=== PATIENT | male | born 1945 | race Caucasian/White ===

== ENCOUNTER 2023-11-03 13:38 | Observation (INO) ==
--- NOTE | 2023-11-03 14:04 | Emergency Department Note ---
Impression & Plan Syncope, Hyperglycemia ED Provider Note NAME: HUMERA JACOB AGE: 78 SEX: M : 1945 ARRIVES VIA: Ambulance INFORMANT: Patient ED PROVIDER(S): Geovanny Guerrero DO CHIEF COMPLAINT: syncope HPI: Patient is an 78-year-old male who presents the ER for a syncopal episode. He was helping change a spark plug and got lightheaded and passed out. He was brought in by EMS. He denies any chest pain preceding or following the incident. When he woke up and he knew where he was. Per his friend he became very rigid. There is no seizure activity. He did not bite his tongue or lose control of his bowel or bladder. Denies any headache or change in vision. No dysuria, urgency, or frequency. He does admit to getting sick in the back of ambulance. Per EMS he did have about three bouts of 6 to 8 beats of what appeared to be VT to them. There is no clear motion on the patient at that time to of cause the artifact but they are not certain. He denies any complaints from the fall. ADDITIONAL HISTORY OBTAINED: Per HPI Chronic Medical/Social Conditions Affecting Care: Per HPI PAST MEDICAL HISTORY:See Below PAST SURGICAL HISTORY:See Below FAMILY HISTORY:See Below SOCIAL HISTORY:See Below HOME MEDICATIONS:See Below ALLERGIES:See Below VITALS:See Below PHYSICAL EXAMINATION: GENERAL: Sitting up in bed, alert, well appearing, well nourished, no distress, non-toxic EYE EXAM: normal conjunctiva. OROPHARYNX: mucous membranes are moist NECK: supple, no nuchal rigidity, no adenopathy, non-tender LUNGS: Clear to auscultation. Normal chest wall mechanics HEART: no murmurs, S1 normal and S2 normal ABDOMEN: abdomen soft, non-tender, normo-active bowel sounds, no masses, no rebound or guarding. UPPER EXTREMITIES: upper extremities are grossly normal. LOWER EXTREMITIES: No pitting edema. Calves are equal bilaterally NEURO EXAM: Normal sensorium, cranial nerves II-XII grossly intact, normal speech, no gross weakness of arms, no gross weakness of legs. MEDICAL DECISION MAKING: Patient is an 78-year-old male who presents ER for the above-stated complaint. IV was established blood was obtained. Labs show mild leukocytosis of 10.9 thousand. No significant anemia or thrombocytopenia. BMP with a glucose of 175. LFTs bilirubin was unremarkable. Troponin negative. Lipase unremarkable. EKG nondiagnostic. Per EMS there was concern for 3 episodes of about 6 beats of VT. This was reviewed by myself. Based on the patient's age and presentation I did discuss case with the hospitalist for further observation and management. Patient was in agreement. Consults/Care Managements Discussions: Per MDM Triage Nursing notes reviewed. Limited review of prior medical records performed Vital Signs: reviewed and remarkable for no significant abnormalities Differential diagnosis: Differential diagnosis includes etiologies such as vasovagal event, infection, hypoglycemia, electrolyte abnormalities, cardiac sources, intracerebral event, toxicologic, neurologic, as well as others were entertained. ER treatment provided: See below Diagnostics interpreted by me include EKG and cardiac monitoring as listed below: -Cardiac Monitoring: An order was placed for continuous cardiac monitoring. The monitor shows a rate of 80 with sinus rhythm. -ECG: Sinus rhythm rate of 77 Normal axis No PVCs QTc 475 -Laboratory studies:Interpreted by me as stated above in MDM and shown below. Imaging studies: Xrays: As interpreted by me: Portable AP upright 1 view of the chest shows no focal infiltrate CTs show: CT head and cervical spine was negative Procedures:none Critical Care: None Past Med/Surg History Medical History (Updated 11/03/23 @ 16:39 by Geovanny Guerrero, DO) Osteoarth NOS-unspec Dyslipidemia Diabetes 1.5, managed as type 2 Surgical History (Updated 11/03/23 @ 15:55 by Etienne Vyas, PhD, DO) H/O cervical spine surgery H/O lumbosacral spine surgery History of total right hip arthroplasty Social History Smoking Status: Current every day smoker Tobacco Type: Cigars Preferred Language: German Feels Safe at Home: Yes Allergies Allergies Allergy/AdvReac Type Severity Reaction Status Date / Time No Known Allergies Allergy Unknown Unverified 01/18/05 17:55 Home Meds Home Medications Medication Instructions Recorded Confirmed atorvastatin 20 mg tablet 20 mg PO DAILY 11/03/23 11/03/23 escitalopram oxalate 20 mg tablet 20 mg PO DAILY 11/03/23 11/03/23 finasteride 5 mg tablet 5 mg PO DAILY 11/03/23 11/03/23 tamsulosin 0.4 mg capsule 0.4 mg PO DAILY 11/03/23 11/03/23 Results & Data (ED) Vital Signs Vital Signs - 24 hr 11/03/23 14:06 11/03/23 14:07 11/03/23 14:07 Temperature 36.9 C Temperature Source Oral Pulse Rate 75 82 83 Pulse Rate [Left Apical] Pulse Rate [Right Finger] Pulse Rhythm Regular Regular Pulse Rhythm [Right Finger] Pulse Strength Normal Pulse Strength [Right Finger] Respiratory Rate 18 18 Respiratory Effort / Characteristics Non-Labored Spontaneous Respiratory Depth Normal Respiratory Pattern Regular Blood Pressure 134/70 Blood Pressure [Right Arm] Blood Pressure Mean 91 Blood Pressure Mean [Right Arm] Blood Pressure Position Semi-fowlers Blood Pressure Position [Right Arm] Pulse Oximetry 96 96 Oxygen Delivery Method Room Air Room Air Sepsis Recent Fever Within 48 Hours No Sepsis New/Unexplained Change in Mental Status N/A Sepsis Action Taken by Nursing No Action Required 11/03/23 14:18 11/03/23 14:18 11/03/23 14:43 Temperature 36.9 C Temperature Source Oral Pulse Rate 81 Pulse Rate [Left Apical] Pulse Rate [Right Finger] 83 Pulse Rhythm Pulse Rhythm [Right Finger] Regular Pulse Strength Pulse Strength [Right Finger] Normal Respiratory Rate 18 12 Respiratory Effort / Characteristics Non-Labored Spontaneous Respiratory Depth Normal Respiratory Pattern Regular Blood Pressure 134/70 Blood Pressure [Right Arm] 134/70 Blood Pressure Mean 91 Blood Pressure Mean [Right Arm] 91 Blood Pressure Position Blood Pressure Position [Right Arm] Semi-fowlers Pulse Oximetry 96 96 97 Oxygen Delivery Method Room Air Room Air Nasal Cannula Sepsis Recent Fever Within 48 Hours Sepsis New/Unexplained Change in Mental Status Sepsis Action Taken by Nursing 11/03/23 15:48 Temperature Temperature Source Pulse Rate Pulse Rate [Left Apical] 83 Pulse Rate [Right Finger] Pulse Rhythm Pulse Rhythm [Right Finger] Pulse Strength Pulse Strength [Right Finger] Respiratory Rate 17 Respiratory Effort / Characteristics Non-Labored Respiratory Depth Normal Respiratory Pattern Blood Pressure Blood Pressure [Right Arm] 129/78 Blood Pressure Mean Blood Pressure Mean [Right Arm] 95 Blood Pressure Position Blood Pressure Position [Right Arm] Pulse Oximetry 93 Oxygen Delivery Method Room Air Sepsis Recent Fever Within 48 Hours Sepsis New/Unexplained Change in Mental Status Sepsis Action Taken by Nursing Laboratory Data 11/03/23 14:05 11/03/23 14:05 Lab Results 11/03/23 Range/Units 14:05 WBC 10.92 H (4.8-10.8) K/ul RBC 4.66 L (4.70-6.10) M/uL Hgb 14.3 (14.0-18.0) g/dl Hct 42.1 (42.0-52.0) % MCV 90.3 (80.0-100.0) fL MCH 30.7 (25.0-34.0) pg MCHC 34.0 (32.0-36.0) g/dL RDW Std Deviation 46.5 H (36.4-46.3) fL RDW Coeff of Jamil 13.9 (11.5-14.5) % Plt Count 224 (130-400) K/uL MPV 10.3 (9.4-12.4) fL Immature Gran % (Auto) 0.5 % Neut % (Auto) 81.0 % Lymph % (Auto) 10.2 % [place] % (Auto) 7.1 % Eos % (Auto) 0.7 % Baso % (Auto) 0.5 % Neut # (Auto) 8.84 H (1.40-6.50) K/uL Lymph # (Auto) 1.11 L (1.20-3.40) K/uL [place] # (Auto) 0.78 H (0.11-0.59) K/uL Eos # (Auto) 0.08 (0.00-0.50) K/uL Baso # (Auto) 0.06 (0.00-0.20) K/uL Immature Gran # (Auto) 0.05 (0.01-0.20) K/uL Sodium 139 (136-145) mmol/L Potassium 4.1 (3.5-5.1) mmol/L Chloride 105 (98-107) mmol/L Carbon Dioxide 28 (21-32) mmol/L Anion Gap 6 (3-11) BUN 19 (6-23) mg/dl Creatinine 0.86 (0.6-1.4) mg/dl Est Cr Clr Drug Dosing 75.4 ml/min Est GFR ( Amer) 94.9 ml/min Est GFR (Non-Af Amer) 81.9 ml/min BUN/Creatinine Ratio 22.1 H (10-20) Glucose 175 H (70-99(Fasting)) mg/dl Calcium 9.3 (8.6-10.3) mg/dl Total Bilirubin 0.5 (0.2-1.0) mg/dl AST 27 (13-39) U/L ALT 24 (7-52) U/L Alkaline Phosphatase 85 (34-104) U/L Troponin I High Sens 3.9 (0-20) pg/ml Total Protein 7.2 (6.0-8.3) gm/dl Albumin 4.5 (3.4-5.0) gm/dl Globulin 2.7 (2.5-4.0) gm/dl Albumin/Globulin Ratio 1.7 (0.9-2) Lipase 12 (11-82) U/L Administered Medications Discontinued Medications Aspirin (Aspirin 81 Mg Chew) 324 mg PO NOW STA Stop: 11/03/23 16:05 Last Admin: 11/03/23 16:19 Dose: 324 mg Documented By: HS Imaging Data Radiologist's Impression: Chest X-Ray 11/03/23 13:57 XR chest 1V portable CLINICAL HISTORY: Chest pain, nonspecific TECHNIQUE: Single frontal radiograph of the chest was obtained. Comparison: None available at the time of this dictation. FINDINGS: No lines and tubes are seen. The cardiomediastinal silhouette is normal. The lungs are clear. No evidence of pleural effusion or pneumothorax. IMPRESSION: No acute chest disease. ACT 112: Negative or not required by law. Electronically signed by: Naveen Johnson M.D. 11/03/2023 2:[address] 11/03/23 14:10 CT cervical spine wo con CLINICAL HISTORY: fall TECHNIQUE: Multidetector row helical CT of the cervical spine was performed without administration of intravenous contrast. Coronal and sagittal reformations were obtained. Automated dose lowering techniques and/or adjustment according to patient size were utilized for this exam. Comparison: None available at the time of this dictation. FINDINGS: No acute fractures or subluxations are identified. Degenerative changes are seen in the visualized spine. The alignment is normal. Soft tissues are unremarkable. IMPRESSION: Degenerative changes without evidence of acute bony injury. ACT 112: Negative or not required by law. Electronically signed by: Naveen Johnson M.D. 11/03/2023 3:[address] 11/03/23 14:10 CT SCAN OF THE BRAIN WITHOUT IV CONTRAST CLINICAL HISTORY: Syncope. COMPARISON STUDY: No priors. TECHNIQUE: Unenhanced axial CT scan of the brain is performed from the vertex to the skull base. A dose lowering technique was utilized adhering to the principles of ALARA. CT DOSE: 1156.19 mGy.cm FINDINGS: Brain parenchyma: There is age-related involutional change noting [id number] subcortical and periventricular microangiopathic disease. There is no hemorrhage, mass effect, or evidence of acute territorial ischemia by CT criteria. Macedo-white matter differentiation is preserved. No extra-axial fluid collection is seen. Ventricles, sulci, cisterns: Prominent secondary to involutional change. Intracranial vasculature: There is atherosclerotic calcification of the cavernous carotid and vertebral arteries. Calvarium: The skeletal structures are osteopenic. No depressed calvarial fracture is identified. Sinuses and mastoids: There is evidence of previous paranasal sinus surgery. There is trace mucosal thickening in the right maxillary antrum and the ethmoid cavity. The remaining visualized paranasal sinuses are clear. The mastoid air cells are well pneumatized. Orbits: The bony orbits are grossly intact. IMPRESSION: There is no hemorrhage, mass effect, or evidence of acute territorial ischemia by CT criteria. ACT 112: Negative or not required by law. Electronically signed by: Nico Mayo M.D. 11/03/2023 3:02 PM Discharge Plan Visit Data Chief Complaint: Syncope Stated Complaint: PASSED OUT, LIGHT HEADED ED Provider: Geovanny Guerrero Discharge Problem: Syncope, Hyperglycemia Forms Stand Alone Forms: My [facility] [employer] Prescriptions Prescriptions: No Action atorvastatin 20 mg tablet 20 mg PO DAILY tamsulosin 0.4 mg capsule 0.4 mg PO DAILY finasteride 5 mg tablet 5 mg PO DAILY escitalopram oxalate 20 mg tablet 20 mg PO DAILY Referrals Referrals: PCP,NO [Primary Care Provider] - Discharge Problem: Syncope Qualifiers: Syncope type: unspecified Qualified Code(s): R55 - Syncope and collapse
[2023-11-03 14:23] LABS: Basophils # (auto) 0.06 K/uL (0.00-0.20); Basophils % (auto) 0.5 %; Eosinophils # (auto) 0.08 K/uL (0.00-0.50); Eosinophils % (auto) 0.7 %; Hematocrit (blood only) 42.1 % (42.0-52.0); Hemoglobin 14.3 g/dl (14.0-18.0); Immature Granulocytes # (auto) 0.05 K/uL (0.01-0.20); Immature Granulocytes % (auto) 0.5 %; Lymphocytes # (auto) 1.11 K/uL (1.20-3.40); Lymphocytes % (auto) 10.2 %; Mean Corpuscular Hemoglobin 30.7 pg (25.0-34.0); Mean Corpuscular Volume 90.3 fL (80.0-100.0); Mean Platelet Volume 10.3 fL (9.4-12.4); Monocytes # (auto) 0.78 K/uL (0.11-0.59); Monocytes % (auto) 7.1 %; Neutrophils # (auto) 8.84 K/uL (1.40-6.50); Platelet Count 224 K/uL (130-400); RDW Coefficient of Variation 13.9 % (11.5-14.5); RDW Standard Deviation 46.5 fL (36.4-46.3); Red Blood Count 4.66 M/uL (4.70-6.10); White Blood Count 10.92 K/ul (4.8-10.8)
--- NOTE | 2023-11-03 14:35 | XRay Report ---
XR chest 1V portable CLINICAL HISTORY: Chest pain, nonspecific TECHNIQUE: Single frontal radiograph of the chest was obtained. Comparison: None available at the time of this dictation. FINDINGS: No lines and tubes are seen. The cardiomediastinal silhouette is normal. The lungs are clear. No evid ence of pleural effusion or pneumothorax. IMPRESSION: No acute chest disease. ACT 112: Negative or not required by law. Electronically signed by: Naveen Johnson M.D. 11/03/2023 2:34 PM
[2023-11-03 14:36] LABS: Albumin Globulin Ratio 1.7 (0.9-2); Albumin Level 4.5 gm/dl (3.4-5.0); BUN Creatinine Ratio 22.1 (10-20); Bilirubin,Total 0.5 mg/dl (0.2-1.0); Calcium 9.3 mg/dl (8.6-10.3); Creatinine Clr Calc Pharmacy 75.4 ml/min; Est GFR (African American) 94.9 ml/min; Est GFR (Non-African American) 81.9 ml/min; Globulin 2.7 gm/dl (2.5-4.0); Potassium 4.1 mmol/L (3.5-5.1); Total Protein 7.2 gm/dl (6.0-8.3)
[2023-11-03 14:42] LABS: Troponin I High Sensitivity 3.9 pg/ml (0-20)
--- NOTE | 2023-11-03 15:03 | Electrocardiogram Report ---
Test Reason : Blood Pressure : / mmHG Vent. Rate : 077 BPM Atrial Rate : 077 BPM P-R Int : 162 ms QRS Dur : 102 ms QT Int : 420 ms P-R-T Axes : 077 000 051 degrees QTc Int : 475 ms Normal sinus rhythm Incomplete right bundle branch block Confirmed by Cristobal Christiansen ([id number]) on 11/03/2023 3:02:40 PM Referred By: Confirmed By:Delonte Christiansen
--- NOTE | 2023-11-03 15:03 | CT Scan Report ---
CT SCAN OF THE BRAIN WITHOUT IV CONTRAST CLINICAL HISTORY: Syncope. COMPARISON STUDY: No priors. TECHNIQUE: Unenhanced axial CT scan of the brain is performed from the vertex to the skull base. A do se lowering technique was utilized adhering to the principles of ALARA. CT DOSE: 1156.19 mGy.cm FINDINGS: Brain parenchyma: There is age-related involutional change noting [id number] subcortical and pe riventricular microangiopathic disease. There is no hemorrhage, mass effect, or evidence of acute ter ritorial ischemia by CT criteria. Macedo-white matter differentiation is preserved. No extra-axial flui d collection is seen. Ventricles, sulci, cisterns: Prominent secondary to involutional change. Intracranial vasculature: There is atherosclerotic calcification of the cavernous carotid and vertebr al arteries. Calvarium: The skeletal structures are osteopenic. No depressed calvarial fracture is identified. Sinuses and mastoids: There is evidence of previous paranasal sinus surgery. There is trace mucosal t hickening in the right maxillary antrum and the ethmoid cavity. The remaining visualized paranasal si nuses are clear. The mastoid air cells are well pneumatized. Orbits: The bony orbits are grossly intact. IMPRESSION: There is no hemorrhage, mass effect, or evidence of acute territorial ischemia by CT hanna hallman. ACT 112: Negative or not required by law. Electronically signed by: Nico Mayo M.D. 11/03/2023 3:02 PM
--- NOTE | 2023-11-03 15:25 | CT Scan Report ---
CT cervical spine wo con CLINICAL HISTORY: fall TECHNIQUE: Multidetector row helical CT of the cervical spine was performed without administration of intravenous contrast. Coronal and sagittal reformations were obtained. Automated dose lowering techn iques and/or adjustment according to patient size were utilized for this exam. Comparison: None available at the time of this dictation. FINDINGS: No acute fractures or subluxations are identified. Degenerative changes are seen in the visualized sp ine. The alignment is normal. Soft tissues are unremarkable. IMPRESSION: Degenerative changes without evidence of acute bony injury. ACT 112: Negative or not required by law. Electronically signed by: Naveen Johnson M.D. 11/03/2023 3:24 PM
--- NOTE | 2023-11-03 16:02 | History & Physical Report ---
Date of Service November 03, 2023 Assessment & Plan (1) Syncope: Plan: Assessment: 1. Syncope-unknown etiology. CT of the head negative EKG reassuring. Troponin negative. The patient traveled here from [place] he is at high risk for PE with prostate cancer and recent travel. Stat D-dimer is ordered. The rhythm strip has not been located. It does appear that this is probably ventricular tachycardia. Approximately 8 beats in duration. According to the medic and transported him he had 3 separate episodes but this was the only episode that could be captured. Will monitor carefully. We will check a stat magnesium. 2. Rule out pulmonary embolism as above stat D-dimer. 3. Rule out myocardial infarction with serial troponins. Echocardiogram. 4. Tobacco abuse in the form of smoking cigars 3-4 daily. 5. Occasional alcohol use but none recently. 6. Diabetes mellitus [id number]. 7. Dyslipidemia. 2. History of prostate carcinoma status post a radiation seed implantation. 9. Osteoarthritis status post right total hip arthroplasty remotely. 10. 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 Plan: As described above. Stat troponin stat D-dimer stat magnesium telemetry monitoring echocardiogram. Please refer to orders for further planning. History of Present Illness Chief Complaint: Syncope Primary Care Provider: NO PCP Is an 78-year-old male who is from out of town he is from [facility]. He has a camp here locally. He was changing a spark plug with a friend he was bent over he stood up and was lightheaded shortly thereafter according to his friend he became stiff and fell to the ground there was no seizure activity. He was only unconscious for a few seconds when he woke up there was no postictal state he was alert and oriented. There was no loss of bowel or bladder continence. There was no tongue bite. The patient was transported the the ER by EMS. In route there was an apparent 6-8 beat run of ventricular tachycardia that was recorded on a rhythm strip that EMS thought could represent ventricular tachycardia. This rhythm strip has been reviewed by the ER physician however it is unavailable for me to view the staff is currently looking for this rhythm strip and has yet to locate it for my viewing. The ER physician cannot tell me for certainty whether this was ventricular tachycardia or no patient had a unremarkable CT of the head unremarkable CT of the cervical spine. t. Labs are unremarkable including CBC CMP and a negative troponin. Will keep the patient on telemetry observation status to serial troponins and an echocardiogram obtain orthostatic blood pressure measurements. Allergies Allergy/AdvReac Type Severity Reaction Status Date / Time No Known Allergies Allergy Unknown Unverified 01/18/05 17:55 Past Med/Surg History Medical History (Updated 11/03/23 @ 15:58 by Etienne Vyas, PhD, DO) Osteoarth NOS-unspec Dyslipidemia Diabetes 1.5, managed as type 2 Surgical History (Updated 11/03/23 @ 15:55 by Etienne Vyas, PhD, DO) H/O cervical spine surgery H/O lumbosacral spine surgery History of total right hip arthroplasty Social History Smoking Status: Current every day smoker Tobacco Type: Cigars Preferred Language: Hungarian Feels Safe at Home: Yes Review of Systems Review of Systems: A 10 point review of system was obtained and unless otherwise stated here or in history of present illness are negative and noncontributory to chief complaint. Physical Exam Physical Exam: In General: In general this is a 78-year-old male who is alert and oriented x 3 at time of my exam he is asymptomatic and feels at his baseline health status at this time. At the time of my evaluation the patient's is on his speaker phone. HEENT: Normocephalic atraumatic pupils are equal round and reactive to light bilaterally. No scleral icterus no conjunctival injection external auditory canals are patent septum is in the midline nose is without discharge oral mucosa is pink and moist without lesion. NECK: Supple no rigidity no lymphadenopathy no thyromegaly no carotid bruits no JVD no masses. HEART: Regular rate and rhythm I do not appreciate any ectopy or rub. No m urmur. LUNGS: Clear to auscultation bilaterally and anteriorly with no evidence of adventitious sounds/wheezes rales or rhonchi. ABDOMEN: Soft nontender, no rebound, no peritoneal signs, positive bowel sounds, no appreciable organomegaly. EXTREMITIES: Intact, no peripheral cyanosis, clubbing or edema. Strength is 5 out of 5 in extremities x4, no pathological reflexes. NEUROLOGICAL: Cranial nerves II through XII are grossly intact with no focal deficit elicited upon examination. No tremor. Results & Data Results & Data Vital Signs (Past 12 Hours) Vital Signs Temp Pulse Pulse Resp BP BP Pulse Ox 11/03/23 14:43 81 12 134/70 97 11/03/23 14:18 96 03/19/24 14:18 36.9 C 83 18 134/70 96 11/03/23 14:07 83 18 96 11/03/23 14:07 36.9 C 82 18 134/70 96 11/03/23 14:06 75 O2 Del Method 11/03/23 14:43 Nasal Cannula 11/03/23 14:18 Room Air 11/03/23 14:18 Room Air 11/03/23 14:07 Room Air 11/03/23 14:07 Room Air 11/03/23 14:06 Code Status & VTE Plan Code Status Full code-I personally discussed with patient. PG Care Time/CCT Total # of Minutes Spent Total Time Spent with Patient: Total time spent is greater than 50% in coordination of care (as documented) at patient's floor/unit and/or counseling patient: Coding Level of Care Code 19634 INT INP/OBS CARE 3/75MIN Diagnoses Syncope R55
[2023-11-03] MEDS ORDERED: DEXTROSE 50% 50 ML SYRINGE IV PRN (16:04)
[2023-11-03] MEDS ORDERED: GLUCOSE 10 TAB/TUBE PO PRN (16:04)
[2023-11-03] MEDS ORDERED: GLUCAGON FOR INJ 1 MG VIAL SQ PRN (16:04)
[2023-11-03] MEDS ORDERED: GLUCOSE 40% GEL 15 GM TUBE PO PRN (16:04)
[2023-11-03] MEDS ORDERED: CARBOHYDRATES FOR HYPOGLYCEMIA PO PRN (16:04)
[2023-11-03] MEDS: ASPIRIN 81 MG CHEW PO STA (16:19)
[2023-11-03 16:36] LABS: Magnesium 2.1 mg/dl (1.7-2.4)
[2023-11-03 16:42] LABS: Troponin I High Sensitivity 4.8 pg/ml (0-20)
[2023-11-03 17:10] LABS: D Dimer 1600 ug/L FEU (0-500)
[2023-11-03] MEDS: OPTIRAY 320 125ml IV ONE (17:24)
[2023-11-03] MEDS: INSULIN ASPART PER UNIT CHARGE SC SCH (18:33)
--- NOTE | 2023-11-03 19:04 | CT Scan Report ---
CT ANGIOGRAM OF THE CHEST CLINICAL HISTORY: Atypical chest pain. COMPARISON STUDY: Chest x-ray dated 11/03/2023. TECHNIQUE: Following the IV administration of 116 cc of Optiray 320, CT angiogram of the chest was pe rformed from the upper abdomen to the thoracic inlet utilizing the pulmonary embolus protocol. Images are reviewed in the axial, sagittal, and coronal planes. 3-D MIPS images are created and assessed. I V contrast was administered without complication. A dose lowering technique was utilized adhering to the principles of ALARA. CT DOSE: 582.25 mGy.cm FINDINGS: Thyroid: Imaged portions of the thyroid gland are normal in size and attenuation. Thoracic aorta: The thoracic aorta is normal in caliber and demonstrates standard 3-vessel arch anato my. No dissection is seen. Pulmonary vasculature: The pulmonary trunk is normal in caliber. There are no filling defects identif ied in main, lobar, or segmental pulmonary branches to suggest pulmonary embolus. Heart: The heart is normal in size and without pericardial effusion. There are scattered coronary art amaury calcifications. Lungs and pleural spaces: There is dependent atelectasis seen at both lung bases. No airspace consoli dation or pleural effusion is identified. The trachea and central airways are clear. Mediastinum: There is no mediastinal lymphadenopathy. Freya: Clear. Axillae: There is no axillary lymphadenopathy. Upper abdomen: Partially visualized upper abdominal viscera is within normal limits. Skeletal structures: The skeletal structures are osteopenic. Degenerative changes noted in the should ers and spine. No lytic or blastic bony lesions are seen. IMPRESSION: 1. There is no evidence of pulmonary embolus in the main, lobar, or segmental pulmonary arteries. 2. There is no airspace consolidation or pleural effusion. 3. Additional findings as above. ACT 112: Negative or not required by law. Electronically signed by: Nico Mayo M.D. 11/03/2023 7:03 PM
[2023-11-04] MEDS: FAMOTIDINE 20 MG TAB PO PRN (04:06)
[2023-11-04 06:49] LABS: Basophils # (auto) 0.06 K/uL (0.00-0.20); Basophils % (auto) 0.7 %; Eosinophils # (auto) 0.18 K/uL (0.00-0.50); Eosinophils % (auto) 2.2 %; Hematocrit (blood only) 42.7 % (42.0-52.0); Immature Granulocytes # (auto) 0.03 K/uL (0.01-0.20); Immature Granulocytes % (auto) 0.4 %; Lymphocytes # (auto) 0.92 K/uL (1.20-3.40); Lymphocytes % (auto) 11.3 %; Mean Corpuscular Hemoglobin 30.1 pg (25.0-34.0); Mean Corpuscular Hgb Conc 32.8 g/dL (32.0-36.0); Mean Corpuscular Volume 91.8 fL (80.0-100.0); Mean Platelet Volume 10.6 fL (9.4-12.4); Monocytes % (auto) 9.8 %; Neutrophils # (auto) 6.16 K/uL (1.40-6.50); Neutrophils % (auto) 75.6 %; Platelet Count 238 K/uL (130-400); RDW Coefficient of Variation 14.1 % (11.5-14.5); RDW Standard Deviation 47.8 fL (36.4-46.3); Red Blood Count 4.65 M/uL (4.70-6.10); White Blood Count 8.15 K/ul (4.8-10.8)
[2023-11-04 07:43] LABS: Thyroid Stimulating Hormone 1.5 uIu/ml (0.300-4.500)
[2023-11-04 07:44] LABS: Estimated Average Glucose 160 mg/dl; Hemoglobin A1C 7.2 % (4.5-5.6)
[2023-11-04 08:21] LABS: Albumin Level 4.1 gm/dl (3.4-5.0); Bilirubin,Total 0.5 mg/dl (0.2-1.0); Magnesium 2.1 mg/dl (1.7-2.4); Potassium 4.2 mmol/L (3.5-5.1)
[2023-11-04 08:28] LABS: Albumin Globulin Ratio 1.6 (0.9-2); BUN Creatinine Ratio 23.5 (10-20); Chol HDL Ratio 2.2 (0-5); Creatinine Clr Calc Pharmacy 72.7 ml/min; Est GFR (African American) 97.3 ml/min; Est GFR (Non-African American) 83.9 ml/min; Globulin 2.6 gm/dl (2.5-4.0); Total Protein 6.7 gm/dl (6.0-8.3)
--- NOTE | 2023-11-04 10:34 | Cardiology Consultation ---
Date of Consultation November 04, 2023 Assessment & Plan (1) Syncope: Plan 1. Syncope: Unknown etiology. It is possible this represented an arrhythmia. The onset was fairly sudden but he did have a prodrome. Also possibly vagally mediated as he had some symptoms of high vagal tone afterwards. Curiously, it was cold outside hand not eaten all day. With a normal echocardiogram he is low risk for significant ventricular arrhythmias. The recordings obtained by EMS and labeled ventricular tachycardia are simply artifact. A given his overall good health in the absence of objective findings I think would be reasonable to have him discharged with outpatient ambulatory monitoring. This could be arranged through our clinic or if he prefers closer to home around [place]. History of Present Illness Reason for Consultation: Syncope Attending Physician: Macarena Salamanca MD History of Present Illness The patient is an 78-year-old gentleman without a known history of cardiac disease who suffered an episode of syncope yesterday. This was a witnessed event. Patient states he was standing at the time perhaps slightly bent over when he suddenly became dizzy and lightheaded. He backed up a few steps and then according to bystanders passed out on the ground. Reportedly he was out for 1-2 minutes. The patient remembers waking up and being aware of his surroundings. Afterwards he felt somewhat nauseated but otherwise well. No major injuries. EMS was summoned and he was brought to the hospital for evaluation. Reportedly the patient vomited in route. He recalls being somewhat nauseated possibly due to the bumpy road out of his camp site. The patient does not recall any other episodes of syncope in the past. Very rare episodes of dizziness or lightheadedness when standing up rapidly. No history of palpitations or rapid heartbeats. He is very active individual who is accustomed to chopping wood and performing strenuous activity without limitation. He has an element of fatigue at times but did not report limiting dyspnea or shortness of breath. No symptoms of exertional chest pain. Currently feeling well without symptoms. He has been ambulatory around his hospital room without dizziness or lightheadedness. No sense of palpitation. Allergies Allergy/AdvReac Type Severity Reaction Status Date / Time No Known Allergies Allergy Unknown Unverified 01/18/05 17:55 Home Medications Medication Instructions Recorded Confirmed Type atorvastatin 20 mg tablet 20 mg PO DAILY 11/03/23 11/03/23 History escitalopram oxalate 20 mg tablet 20 mg PO DAILY 11/03/23 11/03/23 History finasteride 5 mg tablet 5 mg PO DAILY 11/03/23 11/03/23 History tamsulosin 0.4 mg capsule 0.4 mg PO DAILY 11/03/23 11/03/23 History Patient History Medical History (Updated 11/03/23 @ 16:39 by Geovanny Guerrero, DO) Osteoarth NOS-unspec Dyslipidemia Diabetes 1.5, managed as type 2 Surgical History (Updated 11/03/23 @ 15:55 by Etienne Vyas, PhD, DO) H/O cervical spine surgery H/O lumbosacral spine surgery History of total right hip arthroplasty Social History Smoking Status: Current every day smoker Tobacco Type: Cigars Cigarettes Per Day: 1; Hx Alcohol Use: Yes Alcohol type: beer Hx Substance Use: No Preferred Language: Kiswahili Communication Ability: Effective Finishing Manager Required: No Beliefs That Will Affect Care: None Current Living Situation: Spouse Current Living Situation Comment: Lives at home with Other Information That Helps Us Care for You: No Feels Safe at Home: Yes Safety Concerns: Feels Safe At This Time Assistive Devices: Denture - Upper and Glasses Review of Systems Review of Systems: Per HPI. No recent illnesses. No recent fevers or chills. He generally does not eat breakfast and sometimes does not eat until very late in the day. Physical Exam Physical Exam: The patient is alert and oriented. Mood and affect appeared normal. He answered all questions appropriately. HEENT: Pupils are equal and reactive to light and accommodation. Extraocular movements are intact. The sclerae are anicteric. Neuro: Cranial nerves intact Neck: Patient's neck is supple. He has palpable carotid pulses bilaterally without bruits on auscultation. There is no evidence of jugular venous distention. The thyroid is not enlarged. Lungs: Clear to auscultation bilaterally. He has good air movement without use of accessory muscles. No rales wheezes or rhonchi. Cardiac: Heart demonstrates a regular rate and rhythm. Normal S1 and S2. No murmurs on examination. Pulses: The patient has palpable radial pulses bilaterally that are equal in intensity Extremities: There was no evidence of hypoperfusion. There is no cyanosis or clubbing. There is no edema. Skin: I did not appreciate any rashes on examination today. Results & Data Vital Signs (Past 12 Hours) Vital Signs Temp Pulse Pulse Pulse Resp BP Pulse Ox 11/04/23 07:45 11/04/23 07:00 36.9 C 97 H 18 98/59 L 97 11/04/23 06:00 79 11/04/23 03:34 36.7 C 94 H 17 129/69 94 11/03/23 23:34 36.8 C 74 17 112/66 96 O2 Del Method 11/04/23 07:45 Room Air 11/04/23 07:00 Room Air 11/04/23 06:00 11/04/23 03:34 Room Air 11/03/23 23:34 Room Air Laboratory Results Abnormal Lab Results 11/03/23 11/03/23 11/03/23 14:05 16:05 18:01 WBC 10.92 H RBC 4.66 L Hgb 14.3 Hct 42.1 MCV 90.3 MCH 30.7 MCHC 34.0 RDW Std Deviation 46.5 H RDW Coeff of Jamil 13.9 Plt Count 224 MPV 10.3 Immature Gran % (Auto) 0.5 Neut % (Auto) 81.0 Lymph % (Auto) 10.2 [place] % (Auto) 7.1 Eos % (Auto) 0.7 Baso % (Auto) 0.5 Neut # (Auto) 8.84 H Lymph # (Auto) 1.11 L [place] # (Auto) 0.78 H Eos # (Auto) 0.08 Baso # (Auto) 0.06 Immature Gran # (Auto) 0.05 D-Dimer 1600 H* Sodium 139 Potassium 4.1 Chloride 105 Carbon Dioxide 28 Anion Gap 6 BUN 19 Creatinine 0.86 Est Cr Clr Drug Dosing 75.4 Est GFR ( Amer) 94.9 Est GFR (Non-Af Amer) 81.9 BUN/Creatinine Ratio 22.1 H Glucose 175 H POC Glucose 123 H Estimat Average Glucose Hemoglobin A1c Calcium 9.3 Magnesium 2.1 Total Bilirubin 0.5 AST 27 ALT 24 Alkaline Phosphatase 85 Troponin I High Sens 3.9 4.8 Total Protein 7.2 Albumin 4.5 Globulin 2.7 Albumin/Globulin Ratio 1.7 Triglycerides Cholesterol LDL Cholesterol, Calc VLDL Cholesterol, Calc HDL Cholesterol Cholesterol/HDL Ratio Lipase 12 TSH 11/03/23 11/03/23 11/03/23 19:39 19:43 20:55 WBC RBC Hgb Hct MCV MCH MCHC RDW Std Deviation RDW Coeff of Jamil Plt Count MPV Immature Gran % (Auto) Neut % (Auto) Lymph % (Auto) [place] % (Auto) Eos % (Auto) Baso % (Auto) Neut # (Auto) Lymph # (Auto) [place] # (Auto) Eos # (Auto) Baso # (Auto) Immature Gran # (Auto) D-Dimer Sodium Potassium Chloride Carbon Dioxide Anion Gap BUN Creatinine Est Cr Clr Drug Dosing Est GFR ( Amer) Est GFR (Non-Af Amer) BUN/Creatinine Ratio Glucose POC Glucose 164 H 105 H Estimat Average Glucose Hemoglobin A1c Calcium Magnesium Total Bilirubin AST ALT Alkaline Phosphatase Troponin I High Sens 5.8 Total Protein Albumin Globulin Albumin/Globulin Ratio Triglycerides Cholesterol LDL Cholesterol, Calc VLDL Cholesterol, Calc HDL Cholesterol Cholesterol/HDL Ratio Lipase TSH 11/04/23 11/04/23 05:59 07:14 WBC 8.15 RBC 4.65 L Hgb 14.0 Hct 42.7 MCV 91.8 MCH 30.1 MCHC 32.8 RDW Std Deviation 47.8 H RDW Coeff of Jamil 14.1 Plt Count 238 MPV 10.6 Immature Gran % (Auto) 0.4 Neut % (Auto) 75.6 Lymph % (Auto) 11.3 [place] % (Auto) 9.8 Eos % (Auto) 2.2 Baso % (Auto) 0.7 Neut # (Auto) 6.16 Lymph # (Auto) 0.92 L [place] # (Auto) 0.80 H Eos # (Auto) 0.18 Baso # (Auto) 0.06 Immature Gran # (Auto) 0.03 D-Dimer Sodium 138 Potassium 4.2 Chloride 105 Carbon Dioxide 25 Anion Gap 8 BUN 19 Creatinine 0.81 Est Cr Clr Drug Dosing 72.7 Est GFR ( Amer) 97.3 Est GFR (Non-Af Amer) 83.9 BUN/Creatinine Ratio 23.5 H Glucose 121 H POC Glucose 127 H Estimat Average Glucose 160 Hemoglobin A1c 7.2 H Calcium 9.0 Magnesium 2.1 Total Bilirubin 0.5 AST 25 ALT 19 Alkaline Phosphatase 73 Troponin I High Sens Total Protein 6.7 Albumin 4.1 Globulin 2.6 Albumin/Globulin Ratio 1.6 Triglycerides 72 Cholesterol 140 LDL Cholesterol, Calc 63 VLDL Cholesterol, Calc 14 HDL Cholesterol 63 Cholesterol/HDL Ratio 2.2 Lipase TSH 1.500 Diagnostic Findings Chest CTA did not reveal any evidence of pulmonary embolus or acute inter pulmonary process. Head CT and neck CT did not reveal any acute injury Echocardiogram performed 10/27/2023 revealed preserved LV systolic function without significant valvular abnormalities. ECG Additional Comments: EKG at the time admission revealed normal sinus rhythm with incomplete right bundle branch block. PG Care Time/CCT Total # of Minutes Spent Total Time Spent with Patient: Total time spent is greater than 50% in coordination of care (as documented) at patient's floor/unit and/or counseling patient: Coding Level of Care Code 02939 INT INP/OBS CARE 3/75MIN Diagnoses Syncope R55 Syncope type: unspecified (1) Syncope Syncope type: unspecified Qualified Code(s): R55 - Syncope and collapse
--- NOTE | 2023-11-04 12:45 | XCELERA ---
[id number]
--- NOTE | 2023-11-04 18:38 | Discharge Summary ---
Date of Service November 04, 2023 Admission HPI Per Admitting Provider Is an 78-year-old male who is from out of town he is from [facility]. He has a camp here locally. He was changing a spark plug with a friend he was bent over he stood up and was lightheaded shortly thereafter according to his friend he became stiff and fell to the ground there was no seizure activity. He was only unconscious for a few seconds when he woke up there was no postictal state he was alert and oriented. There was no loss of bowel or bladder continence. There was no tongue bite. The patient was transported the the ER by EMS. In route there was an apparent 6-8 beat run of ventricular tachycardia that was recorded on a rhythm strip that EMS thought could represent ventricular tachycardia. This rhythm strip has been reviewed by the ER physician however it is unavailable for me to view the staff is currently looking for this rhythm strip and has yet to locate it for my viewing. The ER physician cannot tell me for certainty whether this was ventricular tachycardia or no patient had a unremarkable CT of the head unremarkable CT of the cervical spine. t. Labs are unremarkable including CBC CMP and a negative troponin. Will keep the patient on telemetry observation status to serial troponins and an echocardiogram obtain orthostatic blood pressure measurements. Principal Diagnosis syncope Discharge Exam PHYSICAL EXAMINATION Last 24h vital signs reviewed, see documentation in flowsheet General: comfortable appearing, no distress HEENT: Normocephalic, atraumatic, pupils round and equal, sclerae anicteric, no conjunctival injection, moist mucus membranes Lungs: Normal respiratory effort. Clear to auscultation bilaterally. No RRW Heart: Regular rate and rhythm, no murmurs. No JVD Abdomen: Soft, nontender, nondistended. Bowel sounds present. Extremities: Warm, dry, well-perfused. No extremity edema. Neuro: Alert and oriented x 4, face symmetric, moves 4 extremities well Psych: Normal affect and behavior Discharge Data Allergies Allergy/AdvReac Type Severity Reaction Status Date / Time No Known Allergies Allergy Unknown Unverified 01/18/05 17:55 Consultations 11/03/23 15:21 ED Decision to Admit Stat 11/04/23 07:58 Consult Cardiology Routine Ordered Studies 11/03/23 14:10 CT cervical spine wo con Stat CT head/brain wo con Stat 11/03/23 17:12 CT angio chest PE protocol Stat Chest X-Ray 11/03/23 13:57 XR chest 1V portable CLINICAL HISTORY: Chest pain, nonspecific TECHNIQUE: Single frontal radiograph of the chest was obtained. Comparison: None available at the time of this dictation. FINDINGS: No lines and tubes are seen. The cardiomediastinal silhouette is normal. The lungs are clear. No evidence of pleural effusion or pneumothorax. IMPRESSION: No acute chest disease. ACT 112: Negative or not required by law. Electronically signed by: Naveen Johnson M.D. 11/03/2023 2:[address] 11/03/23 14:10 CT cervical spine wo con CLINICAL HISTORY: fall TECHNIQUE: Multidetector row helical CT of the cervical spine was performed without administration of intravenous contrast. Coronal and sagittal reformations were obtained. Automated dose lowering techniques and/or adjustment according to patient size were utilized for this exam. Comparison: None available at the time of this dictation. FINDINGS: No acute fractures or subluxations are identified. Degenerative changes are seen in the visualized spine. The alignment is normal. Soft tissues are unremarkable. IMPRESSION: Degenerative changes without evidence of acute bony injury. ACT 112: Negative or not required by law. Electronically signed by: Naveen Johnson M.D. 11/03/2023 3:[address] 11/03/23 14:10 CT SCAN OF THE BRAIN WITHOUT IV CONTRAST CLINICAL HISTORY: Syncope. COMPARISON STUDY: No priors. TECHNIQUE: Unenhanced axial CT scan of the brain is performed from the vertex to the skull base. A dose lowering technique was utilized adhering to the principles of ALARA. CT DOSE: 1156.19 mGy.cm FINDINGS: Brain parenchyma: There is age-related involutional change noting [id number] subcortical and periventricular microangiopathic disease. There is no hemorrhage, mass effect, or evidence of acute territorial ischemia by CT criteria. Macedo-white matter differentiation is preserved. No extra-axial fluid collection is seen. Ventricles, sulci, cisterns: Prominent secondary to involutional change. Intracranial vasculature: There is atherosclerotic calcification of the cavernous carotid and vertebral arteries. Calvarium: The skeletal structures are osteopenic. No depressed calvarial fracture is identified. Sinuses and mastoids: There is evidence of previous paranasal sinus surgery. There is trace mucosal thickening in the right maxillary antrum and the ethmoid cavity. The remaining visualized paranasal sinuses are clear. The mastoid air cells are well pneumatized. Orbits: The bony orbits are grossly intact. IMPRESSION: There is no hemorrhage, mass effect, or evidence of acute territorial ischemia by CT criteria. ACT 112: Negative or not required by law. Electronically signed by: Nico Mayo M.D. 11/03/2023 3:02 PM Chest CTA 11/03/23 17:12 CT ANGIOGRAM OF THE CHEST CLINICAL HISTORY: Atypical chest pain. COMPARISON STUDY: Chest x-ray dated 11/03/2023. TECHNIQUE: Following the IV administration of 116 cc of Optiray 320, CT angiogram of the chest was performed from the upper abdomen to the thoracic inlet utilizing the pulmonary embolus protocol. Images are reviewed in the axial, sagittal, and coronal planes. 3-D MIPS images are created and assessed. IV contrast was administered without complication. A dose lowering technique was utilized adhering to the principles of ALARA. CT DOSE: 582.25 mGy.cm FINDINGS: Thyroid: Imaged portions of the thyroid gland are normal in size and attenuation. Thoracic aorta: The thoracic aorta is normal in caliber and demonstrates standard 3-vessel arch anatomy. No dissection is seen. Pulmonary vasculature: The pulmonary trunk is normal in caliber. There are no filling defects identified in main, lobar, or segmental pulmonary branches to suggest pulmonary embolus. Heart: The heart is normal in size and without pericardial effusion. There are scattered coronary artery calcifications. Lungs and pleural spaces: There is dependent atelectasis seen at both lung bases. No airspace consolidation or pleural effusion is identified. The trachea and central airways are clear. Mediastinum: There is no mediastinal lymphadenopathy. Freya: Clear. Axillae: There is no axillary lymphadenopathy. Upper abdomen: Partially visualized upper abdominal viscera is within normal limits. Skeletal structures: The skeletal structures are osteopenic. Degenerative changes noted in the shoulders and spine. No lytic or blastic bony lesions are seen. IMPRESSION: 1. There is no evidence of pulmonary embolus in the main, lobar, or segmental pulmonary arteries. 2. There is no airspace consolidation or pleural effusion. 3. Additional findings as above. ACT 112: Negative or not required by law. Electronically signed by: Nico Mayo M.D. 11/03/2023 7:03 PM 11/04/23 05:59 11/04/23 05:59 Hospital Course (1) Syncope: Presented with witnessed syncopal event while working on machinery changing sparkplug with a friend at his camp -he did have prodrome of lightheadedness, had not really eaten that day and probably low oral fluids intake -no seizure activity -regained consciousness spontaneously, has felt well since -CTA done on admission and no evidence of PE, dissection -concern for VT runs by medics - consulted licensing court magistrate Dr. Christiansen who reviewed these and only saw artifact not VT -no arrhythmias on tele overnight -Echo was very normal May have had vasovagal episode or orthostatic syncope given his baseline normotension, low oral/fluids intake and the prodrome. Flomax can also contribute to orthostasis - relatively new med for him Consider arrhythmia and has incomplete RBBB on EKG, however normal echo makes him fairly low risk for arrhythmia -licensing court magistrate recommended ambulatory monitor as outpatient - he will follow up with his PCP in [place] for referral about this -if recurrent lightheadness on standing or recurrent syncope consider stopping flomax -counseled maintenance of oral fluids intake Diabetes mellitus [id number]. A1c at goal 7.2% not on medication Dyslipidemia. History of prostate carcinoma status post a radiation seed implantation. -continue tamsulosin, see above, follow up with his urologist Osteoarthritis status post right total hip arthroplasty remotely. 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 TSH was 1.5 Total Time Total Time Spent Total Time Spent (In Minutes): 40 minutes spent coordinating care for discharge, including reviewing vital signs lab results studies arranging consultation and discussion with licensing court magistrate, examining and counseling patient, writing discharge orders instructions and documentation Discharge Plan Discharge Items Patient Disposition: Home - Self-Care Reason For Visit: SYNCOPE Discharge Diagnosis: Syncope Activity: Resume your previous activity Non-emergency contact: Primary Care Provider Call non-emergency contact if: you have any medication questions and your symptoms worsen Follow-up/Referrals: Boubacar Padron [Other] (Please contact your primary care provider to schedule your hospital discharge follow up. Thank you! ) Diet: Regular Addtl Attending Provider Instructions: You had an episode of syncope (loss of consciousness) Most common causes of syncope are related to low blood pressure while standing (can be provoked by "dehydration" - low salt/food and fluid intake, and medications - flomax/tamsulosin can make this worse), and vasovagal reflex - drop in blood pressure and heart rate related to stimulation of the vagus nerve - examples are nausea / diarrhea / bowel movement, urination, stretching or craning the neck, pain, sight of blood / emotional conditions, or sometimes spontaneous -these are benign conditions but can recur -stay hydrated and eat regularly -use caution when first standing up from sitting/lying down -if you have recurrent lightheadedness when standing up, or low blood pressure when standing you may have to stop taking flomax/tamsulosin, which can aggravate this problem The licensing court magistrate evaluated the rhythm strips from the medics and felt it was artifact, not a true arrhythmia. Your Echo (heart ultrasound) was very normal, making arrhythmia less likely -we recommend setting up an ambulatory heart monitor to check for arrhythmia in the future -follow up with your primary care doctor to see about setting this up locally as soon as possible It was a pleasure seeing you in the hospital Macarena Salamanca MD Pending Studies at Discharge: No Stand-Alone Forms: My [facility], Smoking Cessation Medications and DC Order Prescriptions: Continued atorvastatin 20 mg tablet 20 mg PO DAILY tamsulosin 0.4 mg capsule 0.4 mg PO DAILY finasteride 5 mg tablet 5 mg PO DAILY escitalopram oxalate 20 mg tablet 20 mg PO DAILY Discharge Orders: Discharge Order (Routine); Ordered 11/04/23 Ordered By: Macarena Bell/Other Patient Handouts: Managing Type 2 Diabetes, Causes of Syncope Admission Data Admit Date/Time: 11/03/23 16:05 Attending Provider: Macarena Salamanca Admit Provider: Etienne Vyas Primary Care Provider: PCP,NO Other Providers: Etienne Vyas; Rudolph Kaba; Jabari Canales; Patrick Romero; Kimani Brambila; Rinku Malik; Megan Abraham; Misti Norris; Cristobal Vasquez; Cristobal Christiansen; Brayden Patel; Malachi Keith; Rod Meyer; Gualberto Werner; Zoila Levine; Elijah Schreiber; Ana Laura Soler; Sandeep Murphy Jr Other Interventions: Discharge Summary Assessment (RN) Last Done: 11/04/23 12:24 Coding Level of Care Code 38644 INP/OBS DISCH >30 MIN Diagnoses Syncope R55 Syncope type: unspecified
== END 2023-11-04 13:14 | disposition home or self-care (01) ==
LOC: ED 13:38 → SUATTDRO 16:05 → EDINP 16:05 → INTOOBSV 16:05 → 2E 18:18